=== PATIENT | male | born 1930 | race Caucasian/White ===

== ENCOUNTER 2017-02-12 10:39 | Emergency (ER) | payer MEDICARE, OTHER ==
[~2017-02-12] VITALS: Ht 175.3 cm; Wt 90.7 kg
[~2017-02-12 10:39] MED LIST: AVAPRO75 MG ORAL; CO Q-1030 MG PO; COUMADIN5 MG ORAL; DIOVAN40 MG ORAL; FERROUS SULFAT325 MG ORAL; FLOMAX0.4 MG ORAL; HYDROCHLOROTHIA25 MG ORAL; LIPITOR20 MG ORAL; MECLIZINE HCL25 MG ORAL; RANITIDINE HCL150 MG ORAL; SYNTHROID25 MCG ORAL; VITAMIN D1000 UNI1 ORAL
[2017-02-12 11:25] VITALS: BP 152/89
[2017-02-12] MEDS ORDERED: AZITHROMYCIN250 MG ORAL ×3 (11:54→12:28)
[2017-02-12 12:53] VITALS: BP 152/89
--- NOTE | 2017-02-13 06:42 | Emergency Room Report ---
History of Present Illness General Chief Complaint: Earache Source: Patient Present Illness HPI 86YO M with 1 day of left earache. No radiation of pain. 04/06. Took tylenol at home with improvement. No assoc fever/chills, headache, neck pain, sore throat. Doesnt use Qtips to clean ears. No foreign body insertion. Allergies: Coded Allergies: PENICILLINS (Unverified Allergy, Unknown, 06/18/15) Patient History Past Medical History: see triage record Past Surgical History: none Pertinent Family History: none Social History: Denies: alcohol use, drug use, smoking Immunizations: UTD Reviewed Nursing Documentation: PMH: Agreed, PSxH: Agreed Nursing Documentation-PMH Past Medical History: No History, Except For Hx Cardiac Problems: Yes Hx Hypertension: Yes Hx Cancer: No Hx Gastrointestinal Problems: No Hx Neurological Problems: No Review of Systems All Other Systems: negative except mentioned in HPI Physical Exam Vital Signs Date Time Temp Pulse Resp B/P Pulse Ox O2 Delivery O2 Flow Rate FiO2 02/12/17 10:51 97.2 93 18 169/100 98 Room Air Sp02 EP Interpretation: reviewed, normal General Appearance: normal inspection, well appearing, no apparent distress, alert, GCS 15, non-toxic Head: normocephalic, atraumatic Eyes: bilateral eye EOMI, bilateral eye PERRL ENT: normal ENT inspection, hearing grossly normal, normal pharynx, no angioedema, normal voice, uvula midline, moist mucus membranes, other - Left TM : 2 bullae on TM which is mildly erythematous. No canal erythema. No pinna, external ear ttp Neck: normal inspection, full range of motion, supple, no bony tend Respiratory: normal inspection, lungs clear, normal breath sounds, no respiratory distress, no retraction, no wheezing Cardiovascular #1: regular rate, rhythm, no edema Gastrointestinal: normal inspection, normal bowel sounds, non tender, soft, no guarding, no hernia Genitourinary: no CVA tenderness Musculoskeletal: normal inspection, back normal, normal range of motion, [place]' s Sign negative Neurologic: normal inspection, alert, oriented x3, responsive, handkerchief folder III-XII nml as tested, motor strength/tone normal, speech normal Psychiatric: normal inspection, judgement/insight normal, mood/affect normal Skin: normal inspection, normal color, no rash Lymphatic: normal inspection Medical Decision Making Diagnostic Impression: Primary Impression: Earache, left ER Course Left earache. Exam c/w bullous myringitis. PEN allergic Rx Z-pack as per Uptodate recommendation PMD followup as needed DC home Last Vital Signs Date Time Temp Pulse Resp B/P Pulse Ox O2 Delivery O2 Flow Rate FiO2 02/12/17 12:53 97.2 82 18 152/89 98 Room Air Status: improved Disposition: HOME, SELF-CARE Condition: Improved Scripts Azithromycin* (ZITHROMAX*) 250 Mg Tablet 250 MG ORAL DAILY for 5 Days, #6 TAB Prov: CELY WHITAKER M.D. 02/12/17 Referrals: NOT CHOSEN IPA/,REFERRING (PCP) Patient Instructions: Otitis Media, Adult, [id number] Additional Instructions: - Take ALL antibiotics as prescribed until finished - Take Tylenol as needed for pain - Follow up with your primary care doctor in 1 week CELY WHITAKER M.D. Feb 13, 2017 06:42
== END 2017-02-12 13:04 | disposition home or self-care (01) ==
LOC: EMR 11:40
DX: H92.02 Otalgia, left ear (principal); Z88.0 Allergy status to penicillin; I10 Essential (primary) hypertension
CPT/HCPCS: 99283